=== PATIENT | female | born 1975 | race African-American/Black ===

== ENCOUNTER 2019-06-19 12:04 | Observation (INO) | payer OTHER ==
[2019-06-19 12:16] VITALS: BMI 51.3
--- NOTE | 2019-06-19 13:14 | PDOC ---
History of Present Illness - General Chief Complaint: Abnormal Lab Results (Outside) Stated Complaint: SENT BY PCP Time Seen by Provider: 06/19/19 13:11 - History of Present Illness Initial Comments: 06/19/19 14:15 43 y/o F with PMH of DUB from endometrial thickening and fibroids ( x2), newly diagnosed DM ( A1C 9%), Anemia presenting to the ED from Dr Saman Rene office for abnormal labs. According to Dr Rene, He sent the pt to the ED because he felt a mass in the LUQ & tenderness as well as H&H of 6.2/20, A1C of 9% and elevated ESR (120) and CRP. On further interviewing, pt explains that she has been having DUB since 2 years. She underwent D&Cs, biopsy with all normal results. Her special needs caregiver recently placed an IUD in hope to decrease the bleeding on 06/07/2019. She also endorses SOB on exertion, orthopnea, fatigue and generalized weakness over the last 2 weeks. She denies any fever, chills, chest pain, FND, change in urine or BM. PSH: 2 C-sections Social Hx: none Family Hx: mom with pancreatic cancer, grandmother with liver cancer ROS: Constitutional: no fever,no chills HEENT: no throat pain, no dysphagia Cardiovascular: no chest pain, no palpitations Respiratory: shortness of breath, orthopnea,no cough Gastrointestinal: no Nausea and vomiting Genitourinary: no dysuria no urgency Musculoskeletal: no myalgia, no arthralgia Skin: no bruising Neurologic: no headache, no focal weakness Psych: no agitation, no anxiety PE: VSS GEN: NAD HEENT: PERRLA, moist membrane, clear conjunctiva NECK: no JVD CHEST: vesicular breath sounds b/l midly reduced at the bases HEART: RRR no murmur, rubs or gallop ABDOMEN: + BS, obese abdomen, LUQ tenderness Extremities: 2+ pulses, no edema SKIN: no bruises MSK: no arthralgia no joint tenderness Assessment: CBC, CMP, Type&screen x2, PT/INR, APTT, ESR, CRP, POC glucose, ekg, transvaginal US 06/19/19 14:37 pt refusing 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 US cancelled 06/19/19 14:44 CMP Sodium 138 mmol/L (136-145) 06/19/19 14:41 Potassium 4.8 mmol/L (3.5-5.1) 06/19/19 14:41 Chloride 103 mmol/L (98-107) 06/19/19 14:41 Carbon Dioxide 27 mmol/L (21-32) 06/19/19 14:41 Anion Gap 8 MMOL/L (8-16) 06/19/19 14:41 BUN 7.6 mg/dL (7-18) 06/19/19 14:41 Creatinine 0.9 mg/dL (0.55-1.3) 06/19/19 14:41 Est GFR (CKD-EPI)AfAm 91.40 06/19/19 14:41 Est GFR (CKD-EPI)NonAf 78.86 06/19/19 14:41 Random Glucose 210 mg/dL (74-106) H 06/19/19 14:41 Calcium 9.6 mg/dL (8.5-10.1) 06/19/19 14:41 Total Bilirubin 0.4 mg/dL (0.2-1) 06/19/19 14:41 AST 7 U/L (15-37) L 06/19/19 14:41 ALT 13 U/L (13-61) 06/19/19 14:41 Alkaline Phosphatase 114 U/L (45-117) 06/19/19 14:41 Total Protein 8.6 g/dl (6.4-8.2) H 06/19/19 14:41 Albumin 3.4 g/dl (3.4-5.0) 06/19/19 14:41 hyperglycemia with new diabetes diagnosis 06/19/19 14:47 CBC WBC 15.3 K/mm3 (4.0-10.0) H 06/19/19 16:00 Corrected WBC (auto) Cancelled 06/19/19 14:41 RBC 4.41 M/mm3 (3.60-5.2) 06/19/19 16:00 Hgb 7.1 GM/dL (10.7-15.3) L 06/19/19 16:00 Hct 24.4 % (32.4-45.2) L 06/19/19 16:00 MCV 55.4 fl (80-96) L 06/19/19 16:00 MCH 16.2 pg (25.7-33.7) L 06/19/19 16:00 MCHC 29.3 g/dl (32.0-36.0) L 06/19/19 16:00 RDW 20.8 % (11.6-15.6) H 06/19/19 16:00 Plt Count 703 K/MM3 (134-434) H 06/19/19 16:00 MPV 8.4 fl (7.5-11.1) 06/19/19 16:00 Absolute Neuts (auto) 7.6 K/mm3 (1.5-8.0) 06/19/19 16:00 Neutrophils % 49.6 % (42.8-82.8) 06/19/19 16:00 Lymphocytes % 47.0 % (8-40) H 06/19/19 16:00 Monocytes % 2.2 % (3.8-10.2) L 06/19/19 16:00 Eosinophils % 0.4 % (0-4.5) 06/19/19 16:00 Basophils % 0.8 % (0-2.0) 06/19/19 16:00 Nucleated RBC % 0 % (0-0) 06/19/19 16:00 Platelet Estimate Cancelled 06/19/19 14:41 Platelet Comment Cancelled 06/19/19 14:41 ESR Cancelled 06/19/19 14:41 leukocytosis at 15.3 anemic at 7.1/24.4 with microcytosis 55.4 06/19/19 15:38 CT A/P with COntrast : No definite CT findings of acute pathology are noted. Mild nonspecific bilateral pelvic and inguinal lymphadenopathy is seen. An IUD is noted with probable malposition. Diffuse hepatic steatosis. reached out to Dr Rene. He request admission for observation and 2 unit PRBCs 06/19/19 18:06 pt admitted Past History - Past Medical History Allergies/Adverse Reactions: Allergies Allergy/AdvReac Type Severity Reaction Status Date / Time No Known Allergies Allergy Verified 06/19/19 12:16 Home Medications: Ambulatory Orders NK [No Known Home Medication] 06/19/19 COPD: No - Psycho Social/Smoking Cessation Hx Smoking History: Current every day smoker Number of Cigarettes Smoked Daily: 10 Information on smoking cessation initiated: No *Physical Exam - Vital Signs Last Vital Signs Temp Pulse Resp BP Pulse Ox 99.5 F 116 H 18 156/78 100 06/19/19 12:12 06/19/19 12:12 06/19/19 12:12 06/19/19 12:12 06/19/19 12:12 ED Treatment Course - LABORATORY CBC & Chemistry Diagram: 06/19/19 16:00 06/19/19 14:41 Discharge - Discharge Information Problems reviewed: Yes Clinical Impression/Diagnosis: Anemia Qualifiers: Anemia type: iron deficiency Iron deficiency anemia type: unspecified iron deficiency Qualified Code(s): D50.9 - Iron deficiency anemia, unspecified Condition: Improved - Admission Yes - Follow up/Referral - Patient Discharge Instructions - Post Discharge Activity
--- NOTE | 2019-06-19 16:14 | PDOC ---
Documentation entered by Eloise Gilbert SCRIBE, acting as scribe for Tate Lopez MD. Tate Lopez MD: This documentation has been prepared by the Ofelia bauer Xhesika, SCRIBE, under my direction and personally reviewed by me in its entirety. I confirm that the documentation accurately reflects all work, treatment, procedures, and medical decision making performed by me. Attending Attestation - Resident Resident Name: ChandlerMichelle - ED Attending Attestation I have performed the following: I have examined & evaluated the patient, The case was reviewed & discussed with the resident, I agree w/resident's findings & plan, Exceptions are as noted - HPI HPI: 06/19/19 15:20 The patient is a 43 year old female, with a PMH of DUB, newly diagnosed DM, and Anemia who presents to the ED referred from PMD, Dr. Saman Rene office for LUQ mass and H&H of 6.2/20, A1C of 9% and elevated ESR (120). The patient denies chest pain, shortness of breath, and dizziness. Denies fever , chills, cough, nausea, vomiting, and constipation. Denies dysuria, frequency, urgency and hematuria. Allergy: NKDA Social: Denies alcohol, cigarette or drug use. - Physicial Exam PE: 06/19/19 15:20 Vitals: Triage Vital signs reviewed General Appearance: no acute distress, well nourished well developed, Neck: Supple;No Nuchal rigidity Chest Wall: Nontender Cardiac: Regular rate and rhythm, no murmurs, no rubs, no gallops, Lungs: Clear to auscultation bilateral, good air movement bilaterally, Abdomen: Soft, nondistended, normal bowel sounds, nontender to palpation Extremities: Full range of motion to all extremities, no cyanosis, clubbing, or edema Skin: Warm and dry, no rashes or lesions, no petechiae Psych: normal mood, normal affect - Medical Decision Making 06/19/19 16:40 Patient sent in for symptomatic anemia and questionable left upper quadrant mass for labs and CAT scan Dr. De Oliveira to follow-up labs and CAT scan and reassess and dispo Heart Score/ECG Review - ECG Impressions Comment:: 06/19/19 16:40 EKG demonstrates normal sinus rhythm at [address] elevations or T wave inversions Interpreted by me.
[2019-06-19 16:18] LABS: ALBUMIN 3.4 g/dl (3.4-5.0); ALK PHOS 114 U/L (45-117); ANION GAP 8 MMOL/L (8-16); BILIRUBIN,TOTAL 0.4 mg/dL (0.2-1); BLOOD UREA NITROGEN 7.6 mg/dL (7-18); CALCIUM 9.6 mg/dL (8.5-10.1); CHLORIDE 103 mmol/L (98-107); CO2 27 mmol/L (21-32); CREATININE 0.9 mg/dL (0.55-1.3); GLUCOSE,RANDOM 210 mg/dL (74-106); POTASSIUM 4.8 mmol/L (3.5-5.1); SGOT/AST 7 U/L (15-37); SGPT/ALT 13 U/L (13-61); SODIUM 138 mmol/L (136-145); TOT PROT 8.6 g/dl (6.4-8.2)
[2019-06-19 16:48] LABS: INR 1.14 (0.83-1.09); PROTHROMBIN TIME (PATIENT) 13.5 SEC (9.7-13.0)
[2019-06-19 16:49] LABS: BASO % 0.8 % (0-2.0); EOS % 0.4 % (0-4.5); HEMATOCRIT 24.4 % (32.4-45.2); HEMOGLOBIN 7.1 GM/dL (10.7-15.3); MCHC 29.3 g/dl (32.0-36.0); MEAN CELL VOLUME 55.4 fl (80-96); MEAN PLT VOLUME 8.4 fl (7.5-11.1); MONO % 2.2 % (3.8-10.2); NEUT % 49.6 % (42.8-82.8); PLATELET COUNT 703 K/MM3 (134-434); RBC 4.41 M/mm3 (3.60-5.2); RDW 20.8 % (11.6-15.6); WHITE BLOOD COUNT 15.3 K/mm3 (4.0-10.0)
[2019-06-19 16:51] LABS: ACTIVATED PTT 27.8 SECONDS (25.2-36.5)
[2019-06-19 17:28] LABS: MCH 16.2 pg (25.7-33.7)
[2019-06-19] MEDS ORDERED: SODIUM CHLORIDE 1,000 ML IV SCH (18:15)
--- NOTE | 2019-06-19 18:27 | HP ---
Admitting History and Physical - Admission Chief Complaint: morbidly obese pt came to my office c/o luq pain scale5 ? felt mass. h/h 6.1 hgb new dx diabetes kian aic 9,[address] blood tranfusions. sed crp elevated also History Source: Patient Limitations to Obtaining History: No Limitations - Past Medical History Gastrointestinal: Yes: Diverticulosis Heme/Onc: Yes: Anemia - Past Surgical History Past Surgical History: Yes: None - Smoking History Smoking history: Current every day smoker Have you smoked in the past 12 months: No Aproximately how many cigarettes per day: 10 - Alcohol/Substance Use Hx Alcohol Use: No History of Substance Use: reports: None - Social History Usual Living Arrangement: Yes: With Child ADL: Independent History of Recent Travel: No Home Medications - Allergies Allergies/Adverse Reactions: Allergies Allergy/AdvReac Type Severity Reaction Status Date / Time No Known Allergies Allergy Verified 06/19/19 12:16 Family Medical History Family History: Unremarkable Review of Systems - Review of Systems Constitutional: reports: Weakness Eyes: reports: No Symptoms HENT: reports: No Symptoms Neck: reports: No Symptoms Cardiovascular: reports: No Symptoms Respiratory: reports: SOB on Exertion Gastrointestinal: reports: Abdominal Pain Genitourinary: reports: No Symptoms Breasts: reports: No Symptoms Reported Musculoskeletal: reports: Back Pain Integumentary: reports: No Symptoms Neurological: reports: No Symptoms Endocrine: reports: Increased Thirst Hematology/Lymphatic: reports: No Symptoms Psychiatric: reports: No Symptoms Physical Examination Vital Signs: Vital Signs Temperature 99.5 F 06/19/19 12:12 Pulse Rate 116 H 06/19/19 12:12 Respiratory Rate 18 06/19/19 12:12 Blood Pressure 156/78 06/19/19 12:12 O2 Sat by Pulse Oximetry (%) 100 06/19/19 12:12 Constitutional: Yes: Mild Distress Eyes: Yes: WNL HENT: Yes: WNL Neck: Yes: WNL Cardiovascular: Yes: WNL Respiratory: Yes: WNL (lt upper quad pain scale 5) ...Rectal Exam: Yes: Deferred Renal/: Yes: WNL Breast(s): Yes: WNL Musculoskeletal: Yes: WNL Extremities: Yes: WNL Edema: No Peripheral Pulses WNL: Yes Integumentary: Yes: WNL Neurological: Yes: WNL ...Motor Strength: WNL Psychiatric: Yes: WNL Labs: CBC, BMP 06/19/19 16:00 06/19/19 14:41 Assessment/Plan give bloo ? doubt essental throbocytosis ? rx platlets high sx f/u gi f/u reapeat labs in am dm diet iv fluids w/u for anemia in progress dm meds started finger stks bid aic stat ct chest today
[2019-06-19] MEDS ORDERED: INSULIN (LEVEMIR) 100 UNITS/ML UNITS SQ ONE (18:30)
[2019-06-19 18:38] LABS: ANISOCYTOSIS 3+; MACROCYTOSIS 0; PLATELET ESTIMATE INCREASED; TARGET CELLS 3+
[2019-06-19 21:58] LABS: RETICULOCYTES 2.02 % (0.5-1.5)
[2019-06-19 22:40] LABS: IRON SERUM 14 ug/dL (50-175); TOTAL IRON BINDING CAPACITY 467 ug/dL (250-450)
[2019-06-19 22:44] LABS: ERYTHROCYTE SEDIMENTATION RATE 48 mm/hr (0-20)
[2019-06-19 22:48] LABS: URINE APPEARANCE CLEAR; URINE BILIRUBIN NEGATIVE (NEGATIVE); URINE COLOR YELLOW; URINE GLUCOSE (UA) NEGATIVE (NEGATIVE); URINE KETONE NEGATIVE (NEGATIVE)
[2019-06-19 22:49] LABS: PH,URINE 5.5 (5.0-8.0); URINE LEUK ESTERASE NEGATIVE (NEGATIVE); URINE NITRITE NEGATIVE (NEGATIVE); URINE PROTEIN NEGATIVE (NEGATIVE); URINE RBC 1.9 /hpf (0-4); URINE WBC 0.8 /hpf (0-5)
[2019-06-19 22:50] LABS: EPI CELLS 1.4 /HPF (0-5/HPF); HYALINE CASTS 0.35 /lpf (0-8); URINE BACTERIA 649 /hpf (NEGATIVE)
[2019-06-19] MEDS ORDERED: ACETAMINOPHEN 1000 MG/100 ML VIAL (NON FORMULARY) IVPB ONE (23:32)
[2019-06-19] MEDS ORDERED: ACETAMINOPHEN INJECTION 100 ML IVPB ONE (23:35)
[2019-06-19 23:54] LABS: LDH 219 U/L (84-246)
[2019-06-20 04:00] LABS: BASO % 0.9 % (0-2.0); EOS % 1.4 % (0-4.5); HEMOGLOBIN 8.3 GM/dL (10.7-15.3); LYMPH % 33.7 % (8-40); MCHC 30.7 g/dl (32.0-36.0); MEAN CELL VOLUME 60.7 fl (80-96); MEAN PLT VOLUME 8.7 fl (7.5-11.1); MONO % 5.1 % (3.8-10.2); NEUT % 58.9 % (42.8-82.8); PLATELET COUNT 592 K/MM3 (134-434); RBC 4.44 M/mm3 (3.60-5.2); RDW 26.8 % (11.6-15.6)
[2019-06-20 04:02] LABS: MCH 18.7 pg (25.7-33.7)
[2019-06-20] MEDS ORDERED: ACETAMINOPHEN 1000 MG/100 ML VIAL (NON FORMULARY) IVPB ONE (04:21)
[2019-06-20] MEDS ORDERED: ACETAMINOPHEN INJECTION 100 ML IVPB ONE (04:25)
[2019-06-20 06:16] LABS: PLATELET ESTIMATE INCREASED
[2019-06-20 06:23] VITALS: PULSE 76; TEMP 98
[2019-06-20 06:34] LABS: HEMATOCRIT 24.8 % (32.4-45.2); HEMOGLOBIN 7.8 GM/dL (10.7-15.3); MCHC 31.3 g/dl (32.0-36.0); MEAN CELL VOLUME 59.2 fl (80-96); MEAN PLT VOLUME 8.3 fl (7.5-11.1); PLATELET COUNT 522 K/MM3 (134-434); RDW 25.8 % (11.6-15.6); WHITE BLOOD COUNT 13.3 K/mm3 (4.0-10.0)
[2019-06-20 06:38] LABS: MCH 18.5 pg (25.7-33.7)
[2019-06-20 07:00] LABS: BILIRUBIN,TOTAL 0.5 mg/dL (0.2-1); BLOOD UREA NITROGEN 10.6 mg/dL (7-18); CALCIUM 8.7 mg/dL (8.5-10.1); CREATININE 0.9 mg/dL (0.55-1.3); POTASSIUM 4.5 mmol/L (3.5-5.1); TOT PROT 7.3 g/dl (6.4-8.2)
[2019-06-20] MEDS ORDERED: metFORMIN HCL 500 MG TABLET (FP) PO SCH (07:00)
--- NOTE | 2019-06-20 08:54 | CON.GI ---
Consult Consult Specialty:: GI Referred by:: Dr Saman Rene Reason for Consultation:: Anemia - History of Present Illness History of Present Illness: Patient is a 43 y/o female with past medical history of DUB, newly diagnosed DM , and Anemia. Consult was placed for anemia. Patient presented from PCP office low H/H and LUQ mass. CTAP shows no definite CT findings of acute pathology, mild nonspecific bilateral and pelvic lymphadenopathy, diffuse hepatic steatosis, IUD noted with probable malposition. Labs show initial Hg 7.1, she received 2U PRBC transfusion and Hg show uptrend to 8.1 but now are beginning to trend down and is currently 7.8. Patient states she does experience heavy menstual periods and has a thickened uterine lining. On exam she denies nausea, vomiting, abdominal pain, diarrhea, constipation, melena, rectal bleeding or abnormal weight loss. - History Source History Provided By: Patient Limitations to Obtaining History: No Limitations - Past Medical History Gastrointestinal: Yes: Diverticulosis ...: No - Past Surgical History Past Surgical History: Yes: None - Alcohol/Substance Use Hx Alcohol Use: No History of Substance Use: reports: None - Smoking History Smoking history: Current every day smoker Have you smoked in the past 12 months: No Aproximately how many cigarettes per day: 10 - Social History ADL: Independent History of Recent Travel: No Home Medications - Allergies Allergies/Adverse Reactions: Allergies Allergy/AdvReac Type Severity Reaction Status Date / Time No Known Allergies Allergy Verified 06/19/19 12:16 - Home Medications Home Medications: Ambulatory Orders NK [No Known Home Medication] 06/19/19 Review of Systems - Review of Systems Constitutional: reports: No Symptoms Eyes: reports: No Symptoms HENT: reports: No Symptoms Neck: reports: No Symptoms Cardiovascular: reports: No Symptoms Respiratory: reports: No Symptoms Gastrointestinal: reports: No Symptoms Genitourinary: reports: No Symptoms Breasts: reports: No Symptoms Reported Musculoskeletal: reports: No Symptoms Integumentary: reports: No Symptoms Neurological: reports: No Symptoms Endocrine: reports: No Symptoms Hematology/Lymphatic: reports: No Symptoms Psychiatric: reports: No Symptoms Physical Exam-GI Vital Signs: Vital Signs Temperature 98.0 F 06/20/19 06:00 Pulse Rate 76 06/20/19 06:00 Respiratory Rate 20 06/20/19 06:00 Blood Pressure 124/60 06/20/19 06:00 O2 Sat by Pulse Oximetry (%) 99 06/20/19 03:50 Constitutional: Yes: No Distress, Calm, Obese Eyes: Yes: Conjunctiva Clear HENT: Yes: Atraumatic Cardiovascular: Yes: Regular Rate and Rhythm Respiratory: Yes: Regular, CTA Bilaterally Gastrointestinal Inspection: Yes: WNL. No: Ascites, Distention, Hernia, Scars, Other ...Auscultate: Yes: Normoactive Bowel Sounds. No: Hyperactive Bowel Sounds, Hypoactive Bowel Sounds, No Bowel Sounds, Other ...Palpate: Yes: Soft. No: Firm/Rigid, Guarding, Hepatomegaly, Mass, Pulsatile Mass, Splenomegaly, Tenderness, Tenderness, Epigastium, Tenderness, Rebound, Other ...Percussion: Yes: Tympanitic. No: Dullness, Fluid Wave, Other Labs: CBC, BMP 06/20/19 06:15 06/20/19 06:15 INR, PTT INR 1.14 (0.83-1.09) H 06/19/19 14:41 Imaging - Results Cat Scan: Report Reviewed Problem List - Problems (1) Anemia Assessment/Plan: Hg 7.8 s/p 2U PRBC transfusion monitor Hg daily transfuse for Hg >8.0 Anemia panel reviewed and shows low Iron, elev TIBC, low Ferritin consider [employer] consult given history of menorrhagia Code(s): D64.9 - ANEMIA, UNSPECIFIED Qualifiers: Anemia type: iron deficiency Iron deficiency anemia type: unspecified iron deficiency Qualified Code(s): D50.9 - Iron deficiency anemia, unspecified
--- NOTE | 2019-06-20 09:27 | DS ---
Physical Examination Vital Signs: Vital Signs Temperature 98.0 F 06/20/19 06:00 Pulse Rate 76 06/20/19 06:00 Respiratory Rate 20 06/20/19 06:00 Blood Pressure 124/60 06/20/19 06:00 O2 Sat by Pulse Oximetry (%) 99 06/20/19 03:50 Findings/Remarks: pt wants to [place] [facility] care kids vssh/h 7,8 Constitutional: Yes: Well Nourished Eyes: Yes: WNL HENT: Yes: WNL Neck: Yes: WNL Cardiovascular: Yes: WNL Respiratory: Yes: WNL Gastrointestinal: Yes: WNL ...Rectal Exam: Yes: Deferred Renal/: Yes: WNL Breast(s): Yes: WNL Musculoskeletal: Yes: WNL Extremities: Yes: WNL Edema: No Edema: LLE: Trace Peripheral Pulses WNL: Yes Integumentary: Yes: WNL Neurological: Yes: WNL ...Motor Strength: WNL Psychiatric: Yes: WNL Labs: CBC, BMP 06/20/19 06:15 06/20/19 06:15 Discharge Summary Problems reviewed: Yes Reason For Visit: STEATOSIS OF LIVER ANEMIA Current Active Problems Anemia (Acute) Condition: Improved - Instructions - Home Medications Comprehensive Discharge Medication List: Ambulatory Orders NK [No Known Home Medication] 06/19/19
--- NOTE | 2019-06-20 09:41 | EKG ---
Test Reason : Blood Pressure : / mmHG Vent. Rate : 102 BPM Atrial Rate : 102 BPM P-R Int : 126 ms QRS Dur : 076 ms QT Int : 340 ms P-R-T Axes : 059 062 043 degrees QTc Int : 443 ms SINUS TACHYCARDIA OTHERWISE NORMAL ECG NO PREVIOUS ECGS AVAILABLE Confirmed by Jackson Osborne MD ([id number]) on 06/20/2019 9:40:46 AM Referred By: Confirmed By:Jackson Osborne MD
[2019-06-20 10:26] VITALS: BP 149/79
--- NOTE | 2019-06-30 11:28 | PDOC ---
Patient Follow-up (Call Back) - Post ED Follow - Up Condition at time of discharge: Improved Reason for Call Back: Radiology Signs/Symptoms Improved: No - Disposition Additional Instructions/Notes: pt with incidental gallstone seen on unofficial screening ultrasound , prior to CT a/p. gallstone not noted on CT. called pt and left message for callback. also called pt PCP dr katelyn Rene regarding gallstones. recommed referral to GI and outpatient ultrasound for cholelithiasis seen on screening us and fatty liver seen on CT. -Neil Thomas.
== END 2019-06-20 10:20 | disposition home or self-care (01) ==
LOC: JER 12:04 → JERBED 18:02
PROVIDERS: ADMIT Family Medicine; ATTEND Family Medicine
PROC: 30233N1 Transfusion of Nonautologous Red Blood Cells into Peripheral Vein, Percutaneous Approach (ICD-10-PCS; principal; 2019-06-19)
PROC: 3E033NZ Introduction of Analgesics, Hypnotics, Sedatives into Peripheral Vein, Percutaneous Approach (ICD-10-PCS; 2019-06-19)
PROC: 3E0337Z Introduction of Electrolytic and Water Balance Substance into Peripheral Vein, Percutaneous Approach (ICD-10-PCS; 2019-06-19)
DX: D50.9 Iron deficiency anemia, unspecified (principal); K76.0 Fatty (change of) liver, not elsewhere classified; E11.9 Type 2 diabetes mellitus without complications; F17.210 Nicotine dependence, cigarettes, uncomplicated; E66.01 Morbid (severe) obesity due to excess calories; Z68.43 Body mass index [BMI] 50.0-59.9, adult
CPT/HCPCS: 36415; 36430; 36511; 71046-TC-FY; 74177-TC; 80053; 81003; 82105; 82607; 82728; 82962; 83010; 83036; 83540; 83550; 83615; 84702; 85025; 85027; 85044; 85610; 85651; 85730; 86140; 86301; 86304; 86850; 86900; 86901; 86922; 93005; 93010; 96374; 96376; 99285-25; G0378; J0131; J7030; P9038; P9058; Q9967

== ENCOUNTER 2022-05-26 08:55 | Emergency (ER) | payer SELFPAY ==
[2022-05-26 09:08] VITALS: BP 137/84; PULSE 83; RESP 20; TEMP 99; BMI 34.9
[2022-05-26] MEDS ORDERED: FLUORESCEIN NA 1 EA STRIP ONE (09:37)
== END 2022-05-26 10:15 | disposition home or self-care (01) ==
LOC: JER 08:55 → JERFT 08:55
DX: S05.01XA Injury of conjunctiva and corneal abrasion without foreign body, right eye, initial encounter (principal); H10.33 Unspecified acute conjunctivitis, bilateral; W45.8XXA Other foreign body or object entering through skin, initial encounter
CPT/HCPCS: 99283-25